=== PATIENT | male | born 1940 | race Caucasian/White ===

== ENCOUNTER → 2017-12-13 | Day surgery (SDC) | payer OTHER, MEDICARE ==
[~2017-12-13] VITALS: Ht 172.7 cm; Wt 81.6 kg
--- NOTE | 2017-12-13 11:42 | Operative Report ---
Operative/Inv Procedure Report Surgery Date: 12/13/17 Name of Procedure: Complex cataract extraction lens implantation right eye Pre-Operative Diagnosis: Age-related complex cataract right eye Count Fingers vision Post-Operative Diagnosis: Same Estimated Blood Loss: none Surgeon/Credit Analyst: Ab BROOKS,Nate Vega Anesthesia: local monitored anesthesi Complications: None Operative/Procedure Note Note: The patient was brought to the operating room standard monitoring equipment was attached the patient was prepped and draped in the usual fashion for intraocular surgery. A lid speculum was placed to retract the lids. The case was begun by making a temporal incision with a 2.4 mm keratome. The eye was stabilized with a Srinivasan ring during this incision. 1 mL of non-preserved lidocaine was introduced into the anterior chamber to provide anesthesia. The anterior chamber was then filled and deepened with viscoelastic. The anterior capsule was stained with Vision Blue dye. A curvilinear capsulorrhexis was achieved using a 30-gauge needle and is a cystotome and capsulorrhexis was finished using a Utrata forceps. A second or paracentesis incision was made temporally with a 1 mm MVR blade. The lens was then hydrodissected with balanced salt solution and found to be rotatable. The lens was emulsified using phacoemulsification and a modified four-quadrant cracking technique. The residual cortical material was removed using automated irrigation and aspiration and as much of the anterior capsular rim was cleaned as well as possible. The posterior capsule was cleaned first with the automated machine on a low setting and then manually with a Benson squeegee. The capsular bag was deepened with viscoelastic. The lens a B7L Envista EL2171.0 Diopter placed into the bag under direct visualization and rotated so that the haptics were at 12 and 6:00. There was a still there was still a small amount of subincisional cortex which I tried to remove the with a split irrigation aspiration set up. Some of this material came foward brought some vitreous gel withit. As soon as this was recognized this part of the procedure was stopped the lens was repositioned centrally and an air bubble was placed into the anterior chamber This forced the vitreous gel back behind the iris plane. The iris assumed a rounded shape. The wound was checked and initially there was vitreous to it. This area was swept free with a cyclodialysis spatula and the gel was again pushed back into the posterior segment with an air bubble. The wound the main wound was then sealed by hydrating the incision. A 10th of a cc of cefuroxime was placed into the anterior chamber and additional air was placed following this. The paracentesis site was then sealed by hydrating it. At the conclusion of the case the anterior chamber was filled with air, the pupil was round the lens was centered was no leaking from the incisions. The patient's eye was shielded over antibiotic and steroid drops and he will be seen in the office tomorrow.
== END ==
LOC: STS 03:00
DX: H25.89 Other age-related cataract (principal); I10 Essential (primary) hypertension
CPT/HCPCS: J2250; V2632